=== PATIENT | female | born 1935 | race Hispanic/Latino ===

== ENCOUNTER 2019-01-15 21:37 | Inpatient (IN) | payer MEDICARE, OTHER ==
[~2019-01-15] VITALS: Ht 142.2 cm; Wt 75.4 kg
[~2019-01-15 21:37] MED LIST: TRAMADOL HCL-A1 EAC1; Z.0.ASPIRIN CHEW81 M PO; Z.0.CALCIUM600 MG; Z.0.CYCLOBENZAPRINE1; Z.0.K DUR10 MEQ; Z.0.LASIX20 MG; Z.0.LEVOTHROID50 MCG; Z.0.LOPRESSOR25 MG; Z.0.PROTONIX40 MG; Z.0.TOPROL XL25 MG PO; [UNRECOGNIZED DRUG - OTHER]; vicodin
--- OUTSIDE RECORDS SUMMARY | 2019-01-15 21:41 | XMS REPORT ---
[facility] Address Unknown Phone Unavailable Care Team Providers Care Twister Operator Name Role Phone Unavailable Unavailable Payers Payer Name Policy Type Policy Number Effective Date Expiration Date Problems This patient has no known problems. Allergies, Adverse Reactions, Alerts Allergy Name Allergy Type Status Severity Reaction(s) Onset Date Inactive Date Treating Clinician Comments No Known Drug Intolerances DA Active U 2011-10-25 00:00:00 Medications This patient has no known medications. Results Test Description Test Time Test Comments Text Results Atomic Results Result Comments - MRI C-SPINE W/O CONT 2018-10-27 17:55:00 [place]: B St: REG Name: LUCIA CARRILLO BENOIT [facility] : 1935 Age/S: 83/F [address] [facility] Unit #: [id number] Loc: [place] [address] Phys: Julissa Garcia MD Acct: [id number] Dis Date: Status: REG CLI PHONE #: [phone] Exam Date: 10/27/2018 1733 FAX #: [phone] Reason: M48.02 EXAMS: CPT CODE: [id number] MRI C-SPINE W/O CONT 23988 REASON FOR EXAM: M48.02 Exam Order Date: 10/27/2018 4:39 PM Attending MMira: Julissa Romano MD Comparison: Procedure: - MRI C-SPINE W/O CONT FINDINGS: Sagittal and axial images of the cervical spine were obtained in in T1, T2, and proton density with fat saturation. No IV gadolinium was given. The sagittal images show within normal alignment of the cervical spine. No evidence of diskitis or osteomyelitis. No evidence of acute or chronic compression fracture. Minimal deformity of the superior endplates of C6 and C7 consistent with sequela of degenerative changes and disc disease. The axial images show no evidence of cord compression. No evidence of narrowing of the neuroforamen. The cord is unremarkable without evidence of intramedullary mass. IMPRESSION: C5- 6 and C6-7: Minimal broad-based disc bulge with minimal central canal stenosis. No evidence of narrowing of the neural foramen at 2610 Reported and signed by: Toro Glaser M.D. CC: Technologist: AYALA GRIFFITHSRT - MRI Trnward Date/Time/By: 10/27/2018 (0168) : By: DarlynVTL Orig Print D/T: S: 10/27/2018 (2797) PAGE 1 Signed Report SCR MAMM BILATERAL LAURIE CAD DIGITAL 2018-07-18 12:42:27 - SCR MAMM BILATERAL LAURIE CAD DIGITALBILATERAL DIGITAL SCREENING MAMMOGRAM 3D/2D WITH CAD: 07/18/2018CLINICAL: Asymptomatic. Digital breast tomosynthesis was performed in addition to routine CC and MLO views. Current mammographic images were evaluated by either a [employer] M-Vu or a [employer] Identityware ImageChecker CAD (computer aided detection system). Comparison is made to exams dated 04/18/2017 mammogram, mammogram, and 03/17/2015 mammogram - [facility]-. There are scattered fibroglandular tissues in both breasts. No suspicious mass, architectural distortion, malignant type calcification, or lymph node abnormality detected. Breast architecture is stable compared to prior exams.IMPRESSION: NEGATIVEThere is no mammographic evidence of malignancy. Resume annual screening mammography in one year. Purvi Moe M.D. ar/penrad:07/18/2018 12:42:27 Kettle Worker: Valeria KAUFMAN, [facility]-FWletter sent: BIRADS 1-2 Normal Mammogram BI-RADS: 1 Negative
--- NOTE | 2019-01-15 22:25 | Diagnostic Imaging Report ---
EXAMINATION: Head CT without contrast. HISTORY:Headache, confusion and dizziness. COMPARISON:Report of CT brain from 03/03/2011, prior images are not available for comparison at the time of interpretation. TECHNIQUE: Multidetector axial images were obtained from the foramen magnum to the vertex without contrast. The images were reconstructed using brain and bone algorithms. Thin section brain images were reformatted into coronal and sagittal planes. Dose modulation, iterative reconstruction, and/or weight based adjustment of the mA/kV was utilized to reduce the radiation dose to as low as reasonably achievable. Intravenous contrast: None IMAGE QUALITY: Acceptable. FINDINGS: Skull/scalp: No lytic or blastic. lesions. No surgical changes. Parenchyma: Nonspecific bilateral frontoparietal patchy white matter hypodensity are likely related to small vessel ischemic changes. No acute hemorrhage, mass or acute major vascular territorial infarct. Arteries: No density suggestive of thrombosis. Dural sinuses: No abnormal density suggestive of thrombosis. Ventricles: Mild compensated dilatation due to volume loss. No hydrocephalus. Extra-axial spaces: No abnormal density. Brain volume: Generalized age-related cerebral volume loss. Craniocervical junction: No mass, Chiari malformation, or basilar invagination. Sella: No mass. Paranasal/mastoid sinuses: Imaged portions unremarkable. IMPRESSION: No acute intracranial abnormality. Generalized age-related cerebral volume loss. Mild supratentorial white matter microvascular ischemic changes. Signed by: Dr. Melani Terrell M.D. on 01/15/2019 10:22 PM
[2019-01-15] MEDS ORDERED: SODIUM CHLORIDE 0.9% 1000ML 1,000 ML IV SCH (22:35)
[2019-01-15 22:44] LABS: BILIRUBIN,URINE NEGATIVE (NEGATIVE); CLARITY,URINE SL CLOUDY (CLEAR); COLOR,URINE YELLOW (YELLOW); KETONES,URINE NEGATIVE (NEGATIVE); LEUKOCYTE ESTERASE ,URINE NEGATIVE (NEGATIVE); NITRITE,URINE NEGATIVE (NEGATIVE); PROTEIN,URINE DIPSTICK NEGATIVE (NEGATIVE); URINE UROBILINOGEN 0.2 mg/dL (0.2 - 1)
[2019-01-15] MEDS ORDERED: LEVOTHYROXINE75 MCG PO (22:49)
[2019-01-15] MEDS ORDERED: PRAVASTATIN SOD40 MG PO (22:49)
[2019-01-15] MEDS ORDERED: MYRBETRIQ50 MG PO (22:50)
[2019-01-15] MEDS ORDERED: OMEPRAZOLE40 MG PO (22:50)
[2019-01-15 22:58] LABS: BACTERIA,URINE MODERATE /HPF; EPITHELIAL CELLS,URINE FEW /LPF; MUCUS,URINE MANY (RARE)
[2019-01-15 23:12] LABS: BASOPHILS % 0.2 % (0.0-1.0); EOSINOPHILS % 0.4 % (0.0-6.0); HEMATOCRIT 37.6 % (34.2-44.1); HEMOGLOBIN 12.3 g/dL (12.0-16.0); LYMPHOCYTES % 10.7 % (18.0-39.1); MEAN CORPUSCULAR HEMOGLOBIN 31.2 pg (28-32); MEAN CORPUSCULAR HGB CONC 32.7 g/dL (31-35); MEAN CORPUSCULAR VOLUME 95.4 fL (81-99); MONOCYTES # (AUTO) 0.5 (0.2-0.8); MONOCYTES % 5.5 % (4.4-11.3); NEUTROPHILS # (AUTO) 7.7 (2.1-6.9); NEUTROPHILS % 82.8 % (38.7-80.0); PLATELET COUNT 199 x10e3/uL (140-360); RED BLOOD COUNT 3.94 x10e6/uL (3.6-5.1); RED CELL DISTRIBUTION WIDTH 12.8 % (11.7-14.4)
[2019-01-15] MEDS: CEFTRIAXONE SOD 1 GM/NS 50 ML 50 ML IV SCH (23:29)
[2019-01-15 23:31] LABS: ALANINE AMINOTRANSFERASE 16 IU/L (0-55); ALBUMIN 3.5 g/dL (3.5-5.0); ALBUMIN/GLOBULIN RATIO 1.2 (0.8-2.0); ALKALINE PHOSPHATASE 59 IU/L (40-150); ANION GAP 15.2 mmol/L (8-16); BLOOD UREA NITROGEN 19 mg/dL (7-26); BUN/CREATININE RATIO 22 (6-25); CALCIUM 9.5 mg/dL (8.4-10.2); CARBON DIOXIDE 22 mmol/L (22-29); CHLORIDE 105 mmol/L (98-107); CREATININE, SERUM 0.85 mg/dL (0.57-1.11); EST GLOMERULAR FILTRATION RATE > 60 ML/MIN (60-); GLUCOSE 138 mg/dL (74-118); POTASSIUM 4.2 mmol/L (3.5-5.1); SODIUM 138 mmol/L (136-145)
[2019-01-15 23:45] VITALS: BP 130/70
--- NOTE | 2019-01-15 23:45 | NUR ---
patient recieved to room 292 via stretcher from the emergency room. vss. no c/o pain noted. ivf infusing without difficulty. admit assessment/history obtained from patient without difficulty. daughter noted at the bedside. daughter to stay with mother all night. patient/daughter instructed to call for assistance when needed.
[2019-01-16] VITALS (7 sets, daily range): BP systolic 130–142; BP diastolic 61–76
--- NOTE | 2019-01-16 02:40 | NUR ---
patient appears to be resting quietly. no signs of pain/discomfort noted. daughter remains at the bedside.
[2019-01-16] MEDS: LEVOTHYROXINE SODIUM 75 MCG TAB PO SCH (08:30)
[2019-01-16] MEDS: CEFTRIAXONE SOD 1 GM/NS 50 ML 50 ML IV SCH ×2 (10:40→23:30)
[2019-01-16] MEDS: PANTOPRAZOLE SOD 40 MG TABEC PO SCH (10:40)
[2019-01-16] MEDS: ASPIRIN 81 MG CHEW TAB PO SCH (10:40)
[2019-01-16] MEDS: METOPROLOL SUCCINATE 25 MG TAB XL PO SCH ×2 (10:40→17:13)
--- NOTE | 2019-01-16 16:13 | History and Physical ---
PRIMARY CARE PHYSICIAN: Julissa Hall MD. CONSULTING PHYSICIAN: Merary Li MD. CHIEF COMPLAINT: Brief aphasia. HISTORY OF PRESENT ILLNESS: The patient is an 83-year-old female with hypertension, hypothyroidism, active urinary bladder, dyslipidemia, reflux, came in with a few hours of aphasia, now completely resolved. She does not have any symptoms. She is back to normal. No fever. Laboratory workup at the outpatient emergency room showed that the patient had trace blood in the urine with negative leukocyte esterase, but moderate bacteria, 6-10 wbc's. The patient was placed on Rocephin. She is stable. Vital sign, no fever. The patient denied of any chest pain or shortness of breath. Previously, the patient was seen by Dr. Swift. Had a complete workup including stress test. The patient was pending for a cardiac catheterization as an outpatient. She is now completely asymptomatic. Discussed with the patient, family and they are waiting for being seen by the neurologist at this time. The patient is stable. PAST MEDICAL HISTORY: Dyslipidemia, hypertension, overactive urinary bladder, hypothyroidism. PAST SURGICAL HISTORY: Left wrist surgery, bilateral hip repair, ventral hernia repair, cholecystectomy. SOCIAL HISTORY: The patient does not smoke or use alcohol. No regular drugs. ALLERGIES: NO KNOWN ALLERGIES. HOME MEDICATIONS: The patient is on baby aspirin once a day, levothyroxine, metoprolol succinate, Myrbetriq, omeprazole, and pravastatin. REVIEW OF SYSTEMS: Completely asymptomatic. No chest pain. No shortness of breath. No abdominal pain. PHYSICAL EXAMINATION: VITAL SIGNS: Temperature is 97, blood pressure 142/75, pulse rate 70, respirations 18. GENERAL: The patient is not in acute distress. HEENT: Normocephalic, atraumatic. Pupils reactive. Anicteric. NECK: Supple grossly. PULMONARY: Clear. CARDIOVASCULAR: Regular rate and rhythm. ABDOMEN: Soft, unremarkable. EXTREMITIES: No cyanosis or edema NEUROLOGIC: No gross focal deficit. LABORATORY DATA: Sodium is 138, potassium 4.2, chloride 105, bicarb 22, BUN 19, creatinine 0.8, glucose 138. WBC is 9.3, hemoglobin 12.3, hematocrit 37.6, and platelets are 199. Liver enzyme unremarkable. CT of the brain showed no acute intracranial abnormality. Generalized age-related cerebral volume loss. IMPRESSION: 1. Episode of confusion completely resolved. No focal deficit. The patient have urinary tract infection. She may have a transient ischemic attack. 2. Multiple baseline problem. The patient is pending to see Dr. Swift where she will need to have a schedule for a cardiac catheterization. I gave the patient option to see Dr. Swift. She says she will make an appointment to see him. PLAN: In the meantime, continue with home medication. Aspirin. We will have the patient see Dr. Merary Li, neurologist today. Pending on Dr. Li's recommendation, the patient may or may not go home today. Discussed with the patient and son at bedside. I discussed with the patient's grandson at bedside and the patient's son on the phone. We will continue to monitor the patient closely in the hospital. MD RANDALL Pruitt/MARTHA /[id number]
--- NOTE | 2019-01-16 20:25 | NUR ---
Completed BS rounds with Charge nurse. Pt alert and oriented to name. Walking to bed from bathroom took a shower, gait steady. Denies pain at this time. Call chun within reach. Will continue to monitor.
[2019-01-16] MEDS ORDERED: PRAVASTATIN 20 MG TAB PO SCH (21:00)
[2019-01-17] VITALS: BP 144/85
[2019-01-17 04:00] VITALS: BP 131/70
[2019-01-17] MEDS: LEVOTHYROXINE SODIUM 75 MCG TAB PO SCH (05:53)
--- NOTE | 2019-01-17 06:55 | NUR ---
Completed BS rounds with morning nurse. Pt lying in bed. Denies pain at this time. No acute distress noted. Family at bedside. Call chun within reach.
[2019-01-17] MEDS: PANTOPRAZOLE SOD 40 MG TABEC PO SCH (07:43)
[2019-01-17] MEDS: ASPIRIN 81 MG CHEW TAB PO SCH (07:43)
[2019-01-17] MEDS: METOPROLOL SUCCINATE 25 MG TAB XL PO SCH (07:43)
--- NOTE | 2019-01-17 07:44 | NUR ---
The pt's family is at the bedside and has questions about the dr's arrival and was reassured that the dr will round today but I am unsure as to the time. The pt. was medicated for bp 154/94.
[2019-01-17 07:53] VITALS: BP 154/94
[2019-01-17] MEDS: CEFTRIAXONE SOD 1 GM/NS 50 ML 50 ML IV SCH (11:56)
[2019-01-17 12:51] VITALS: BP 167/87
--- NOTE | 2019-01-17 15:10 | NUR ---
The pt. has been cleared for discharge and the iv removed. The pt. was given her prescription and discharge information and was escorted to private car for transport home.
--- NOTE | 2019-01-17 20:49 | Consultation ---
DATE OF CONSULTATION: 01/17/2019 Neurology Consult Note HISTORY OF PRESENT ILLNESS: Ms. Carrion is an 83-year-old right-hand dominant woman with past medical history significant for hypertension and hyperlipidemia, admitted to [facility] on the evening of January 15, 2019, with confusion. On the day of admission, the patient was awakened from sleep by her sister. Ms. Carrion was immediately noted to be confused. More specifically, Ms. Carrion did not recognize her sister. The patient did not recall recent events or plans for the day. It is unknown whether or not the patient was disoriented to her surroundings or time. Subsequently though the patient did recognize her [id number], I continued not to recognize her sister. Neither the patient nor her family members report a visual field cut or other disturbance, dysarthria, aphasia, facial droop, weakness, numbness, poor balance with impairment of gait, or dizziness associated with the above symptoms. Ms. Carrion does report possible dehydration on the day of admission. The patient reports she was not eating or drinking as she does normally. The patient endorses abdominal pain, nausea with vomiting, urinary urgency, and decreased urine output on the day of admission as well. According to family members at the bedside, Ms. Carrion symptoms persisted for approximately 1-1/2 hours. Once they resolved, Ms. Carrion was brought to the emergency center at [facility] for further evaluation of her symptoms. Upon arrival in the emergency center, the patient was afebrile with a blood pressure of 135/60 mmHg and a pulse of 70 beats per minute. Documentation of the patient's neurological examination is not available for review at present. A CT of the brain without contrast was performed while Ms. Carrion was in the emergency center. There was no evidence of recent large territorial ischemia or hemorrhage on this study. Ms. Carrion was subsequently admitted to [facility] as an inpatient for further evaluation and treatment of confusion. Ms. Carrion has not experienced similar symptoms previously. She does take aspirin 81 mg by mouth daily. REVIEW OF SYSTEMS: Confusion, abdominal pain, nausea, vomiting, urinary urgency, decreased urine output. Otherwise, a 12-point review of systems is negative. PAST MEDICAL HISTORY: Hypertension, hyperlipidemia, hypothyroidism, and gastroesophageal reflux disease. PAST SURGICAL HISTORY: Cholecystectomy, umbilical hernia repair, left wrist surgery, and bilateral hip surgeries. FAMILY MEDICAL HISTORY: Hypertension, hyperlipidemia, and diabetes mellitus. SOCIAL HISTORY: Ms. Carrion is a . She is retired. There is no reported current tobacco, alcohol, or recreational drug use. HOME MEDICATIONS: 1. Aspirin 81 mg by mouth daily. 2. Metoprolol 25 mg by mouth twice daily. 3. Pravastatin 40 mg by mouth at bedtime daily. 4. Levothyroxine 75 mcg by mouth daily. 5. Mirabegron 50 mg by mouth daily. 6. Omeprazole 40 mg by mouth daily. HOSPITAL MEDICATIONS: 1. Aspirin. 2. Ceftriaxone. 3. Levothyroxine. 4. Metoprolol. 5. Pravastatin. 6. Pantoprazole. ALLERGIES: NO KNOWN DRUG ALLERGIES. NO KNOWN FOOD ALLERGIES. NO KNOWN ALLERGIES TO LATEX. NO KNOWN ALLERGIES TO IODINE OR OTHER CONTRAST MATERIALS. PHYSICAL EXAMINATION: VITAL SIGNS: Height 56 inches, weight 166 pounds, BMI 37.2 kg/m2, blood pressure 159/94 mmHg, pulse 57 beats per minute. GENERAL: The patient is awake and alert, does not appear distressed. Morbidly obese. HEENT: Normocephalic, atraumatic. Pupils are equal, round, and reactive to light. Moist mucous membranes. NECK: Supple. No appreciable thyromegaly. No appreciable carotid bruits. CARDIOVASCULAR: S1, S2, regular rate and rhythm. No murmurs, rubs, or gallops. RESPIRATORY: Clear to auscultation bilaterally. No wheezes, rhonchi, or rales. EXTREMITIES: The skin is warm and dry. No clubbing, cyanosis, or edema. The posterior tibial and dorsalis pedis pulses are 1+ and symmetric. SKIN: No rashes or lesions. NEUROLOGIC: Memory/Attention: The patient is awake and alert, oriented to person, place (hospital, city, county, state), time (day of the week, month, year), and situation. Cranial Nerves: Cranial nerve 1 - not tested. Cranial nerve 2, 3, 4, and 6 - the pupils are equal and round, reactive briskly to light (4 mm to 2 mm). Extraocular movements intact. No nystagmus. Cranial nerve 5 - sensation is intact to light touch in the bilateral V1 through V3 distributions. Strength in the temporalis and masseter muscle was within normal limits. Cranial nerve 7 - the face is symmetric as are all facial movements. Strength is within normal limits. Cranial nerve 8 - hearing is intact to finger rub bilaterally. Cranial nerve 9, 10 - the soft palate elevates equally and symmetrically. Cranial nerve 11 - normal strength of the bilateral sternocleidomastoid and trapezius muscles. Cranial nerve 12 - the tongue protrudes midline and moves symmetrically from [id number]. Strength: Bulk is normal. Strength is 5/5 in the bilateral deltoids, biceps, triceps, brachioradialis, wrist flexors and extensors, finger flexors and extensors, intrinsic hand muscles, hip flexors, knee flexors, knee extensors, ankle dorsiflexion and plantar flexion, and intrinsic foot muscles. Tone is normal. DTRs: Deep tendon reflexes are 1+ and symmetric at the triceps, biceps, brachioradialis, and patellas. Deep tendon reflexes are absent and symmetric at the Achilles. Plantar responses are flexor bilaterally. Sensation: Sensation is intact to light touch in both arms and both legs. Cerebellar: Ammlkd-pmkc-flhjof and heel-hicks movements are intact without dysmetria or other impairment. Gait: Deferred. Speech: Spontaneous speech is normal without appreciable dysarthria or aphasia. Repetition is intact. Involuntary movements: None. Pronator Drift: None. LABORATORY DATA: A comprehensive metabolic panel was significant only for elevated serum glucose of 138 and a total protein of 6.4. monocytes, 0.4% eosinophils, and 0.2% basophils. Urinalysis reveals slightly cloudy urine with trace blood, 6-10 red blood cells, 6-10 white blood cells, moderate bacteria, and many cells. DIAGNOSTIC STUDIES: Electrocardiogram on 01/15/2019: Normal sinus rhythm at 62 beats per minute. Right bundle-branch block. A CT of the brain without contrast 01/15/2019: On my review, there is no evidence of recent or remote large territorial ischemia, hemorrhage, mass, or mass effect. There is mild diffuse cerebral atrophy with compensatory dilatation of the ventricles, appropriate for the patient's age. Their findings compatible with mild chronic small vessel ischemic disease. Bilateral carotid artery ultrasound with Doppler 01/16/2019: There is no atherosclerosis in either carotid artery system. Flow is antegrade in the bilateral vertebral arteries. ASSESSMENT AND PLAN: Ms. Carrion is an 83-year-old right-hand dominant woman with vascular risk factors, admitted to [facility] on January 15, 2019, with transient confusion as described in history of present illness. At present, her neurological examination is nonfocal. The patient's laboratory data and other diagnostic studies have been reviewed and are documented above. In my opinion, it is unlikely the patient had a transient ischemic attack due to the duration of her symptoms as well as the presence of only one symptom, confusion. It is far more likely the patient's transient confusion was related to a metabolic encephalopathy, probably secondary to urinary tract infection. There are no further recommendations from the Neurology Service at this time. Please call again with any questions or concerns. TIME SPENT: 50 minutes. Merary Li MD CP/MARTHA /[id number] MTDD
--- NOTE | 2019-01-19 05:50 | Discharge Summary ---
FINAL DISCHARGE DIAGNOSES: 1. Transient ischemic attack. 2. Metabolic encephalopathy, probably secondary to urinary tract infection. 3. History of coronary artery disease-per Dr. Dent's note, he gave the patient an option to see Dr. Swift here in the hospital, but the patient refused, instead wants to see Dr. Swift as an outpatient for further management and care. CONSULTANTS: Neurology. PHYSICAL EXAMINATION: VITAL SIGNS: Temperature is 97.2, pulse 62, respiratory rate is 20, blood pressure 154/94, pulse ox 99% on room air. LAB FINDINGS: Show white count 9.3, hemoglobin 12, hematocrit 37, platelets of 199. Chemistry; sodium 138, potassium 4.2, chloride 105, bicarb 22, anion gap of 15, BUN 19, creatinine 0.85, glucose 138, calcium is 9.5, total bilirubin was 0.3, AST 9, ALT 16, alkaline phosphatase 59, albumin 3.5. UA consistent with UTI. MICROBIOLOGY: None. IMAGING STUDIES: Carotid Doppler study shows to have a normal study with very mild stenosis in the bilateral internal carotids, but no evidence of any obstruction or any stenosis seen. CT of the brain found to be negative. HOSPITAL COURSE: An 83-year-old female, came into the emergency room with TIA-like symptoms, was admitted under observation and Neurology was consulted. The patient was found to have urinary tract infection, was treated accordingly with IV antibiotics and discharged on oral antibiotics. While here, neurology was consulted. Carotid Doppler was found to be normal. CT brain was found to be negative. No further workup was needed by Neurology. Per her note, it was felt the patient likely had an underlying TIA, it could be exacerbated from her urinary tract infection. No further neurological workup was needed. The patient was discharged on oral aspirin and statin. Per Dr. Dent's H and P, he offered the patient to have Cardiology come and evaluate her as she needed a left heart catheterization that was supposed to be scheduled at a later date, but the patient has not shown up to that appointment. According to his note, the patient refused and suggested that she will follow up as an outpatient and make an appointment to follow as an outpatient to see him. The patient did not have any chest pain or any symptoms of cardiac issues according to the note while here in the hospital, or even on admission. On discharge, the patient was doing well, back to normal baseline. The patient was cleared for discharge by Neurology. The patient was discharged on oral antibiotics as well. On the day of discharge, vital signs were stable, labs reviewed and stable. The patient seen and evaluated, examined thoroughly on the day of discharge. No other complaints. The patient verbalized understanding and agrees to plan of care to follow up appointment as an outpatient with the primary care physician in 1 week and urologist in 2 weeks' time. In relation to her underlying confusion, it all resolved after treatment of IV antibiotics for urinary tract infection. No further workup was needed. MEDICATIONS: See med reconciliation form. DISPOSITION: Home. CONDITION: Stable. DIET: Heart healthy. In the event of any worsening symptoms, the patient was advised to come back to the ED for further evaluation. Discharge summary took greater than 35 minutes. MD BETTY Clemente/MODManjinder /[id number]
== END 2019-01-17 15:30 | disposition home or self-care (01) | DRG 689 ==
LOC: ER 21:37 → ERHOLD 22:39 → MED/SURG3 23:23
PROVIDERS: ADMIT Internal Medicine; ATTEND Internal Medicine
DX: N39.0 Urinary tract infection, site not specified (principal); G93.41 Metabolic encephalopathy; I25.10 Atherosclerotic heart disease of native coronary artery without angina pectoris; I65.23 Occlusion and stenosis of bilateral carotid arteries; I10 Essential (primary) hypertension; E78.5 Hyperlipidemia, unspecified; E03.9 Hypothyroidism, unspecified; Z79.52 Long term (current) use of systemic steroids; N32.81 Overactive bladder
CPT/HCPCS: 36415; 70450; 80053; 81001; 85025; 93005; 93880; 99284; J0696; J7030

== ENCOUNTER 2019-03-20 00:29 | Emergency (ER) | payer MEDICARE, OTHER ==
[~2019-03-20] VITALS: Ht 142.2 cm; Wt 78.0 kg
[~2019-03-20 00:29] MED LIST changes: +LEVOTHYROXINE75 MCG PO; +MYRBETRIQ50 MG PO; +OMEPRAZOLE40 MG PO; +PRAVASTATIN SOD40 MG PO
[2019-03-20] MEDS ORDERED: CLONIDINE HCL 0.1 MG TAB PO ONE (01:00)
[2019-03-20] MEDS ORDERED: ASPIRIN 81 MG CHEW TAB PO ONE (01:15)
[2019-03-20 02:07] LABS: BASOPHILS % 0.3 % (0.0-1.0); EOSINOPHILS % 0.1 % (0.0-6.0); HEMATOCRIT 38.5 % (34.2-44.1); HEMOGLOBIN 12.6 g/dL (12.0-16.0); LYMPHOCYTES # (AUTO) 0.9 (1.0-3.2); LYMPHOCYTES % 12.5 % (18.0-39.1); MEAN CORPUSCULAR HEMOGLOBIN 31.4 pg (28-32); MEAN CORPUSCULAR HGB CONC 32.7 g/dL (31-35); MONOCYTES # (AUTO) 0.4 (0.2-0.8); MONOCYTES % 5.2 % (4.4-11.3); NEUTROPHILS # (AUTO) 5.6 (2.1-6.9); NEUTROPHILS % 81.5 % (38.7-80.0); PLATELET COUNT 182 x10e3/uL (140-360); RED BLOOD COUNT 4.01 x10e6/uL (3.6-5.1); RED CELL DISTRIBUTION WIDTH 12.7 % (11.7-14.4)
[2019-03-20] MEDS ORDERED: HYDROCHLOROTHIA25 MG PO (02:12)
[2019-03-20 02:19] LABS: ALANINE AMINOTRANSFERASE 19 IU/L (0-55); ALBUMIN 3.7 g/dL (3.5-5.0); ALBUMIN/GLOBULIN RATIO 1.2 (0.8-2.0); ALKALINE PHOSPHATASE 69 IU/L (40-150); ANION GAP 12.9 mmol/L (8-16); BLOOD UREA NITROGEN 20 mg/dL (7-26); BUN/CREATININE RATIO 28 (6-25); CALCIUM 9.8 mg/dL (8.4-10.2); CARBON DIOXIDE 26 mmol/L (22-29); CHLORIDE 104 mmol/L (98-107); CREATINE KINASE 57 IU/L (29-168); CREATININE, SERUM 0.72 mg/dL (0.57-1.11); EST GLOMERULAR FILTRATION RATE > 60 ML/MIN (60-); GLUCOSE 130 mg/dL (74-118); POTASSIUM 4.9 mmol/L (3.5-5.1); SODIUM 138 mmol/L (136-145)
--- NOTE | 2019-03-20 02:46 | NUR ---
report given to jannie denney
--- NOTE | 2019-03-20 04:41 | Diagnostic Imaging Report ---
EXAMINATION: CHEST SINGLE (PORTABLE) INDICATION: Chest pain COMPARISON: None FINDINGS: AP view TUBES and LINES: None. LUNGS: Lungs are well inflated. Lungs are clear. There is no evidence of pneumonia or pulmonary edema. Prominent central pulmonary vasculature. PLEURA: No pleural effusion or pneumothorax. HEART AND MEDIASTINUM: The cardiomediastinal silhouette is mildly enlarged. Thoracic aorta calcifications tortuous thoracic aorta. BONES AND SOFT TISSUES: No acute osseous lesion. Soft tissues are unremarkable. Healed fracture of posterior aspect of left rib 6. Degenerative changes in the spine and shoulders with evidence to suggest chronic bilateral rotator cuff tears. UPPER ABDOMEN: No free air under the diaphragm. IMPRESSION: Pulmonary vascular congestion. Tortuous aorta can be seen with hypertension. Signed by: Christopher Dent DO on 03/20/2019 4:38 AM
[2019-03-20 06:27] VITALS: BP 144/73
== END 2019-03-20 04:50 | disposition home or self-care (01) ==
LOC: ER 00:29
DX: R07.89 Other chest pain (principal); I10 Essential (primary) hypertension; I45.10 Unspecified right bundle-branch block; Z79.82 Long term (current) use of aspirin
CPT/HCPCS: 36415; 71045; 80053; 82550; 82553; 84484; 85025; 93005; 99284

== ENCOUNTER 2022-01-09 09:39 | Outpatient (RCR) | payer OTHER ==
[~2022-01-09 09:39] MED LIST changes: +HYDROCHLOROTHIA25 MG PO
[2022-01-14] MEDS ORDERED: IBUPROFEN200 MG PO (14:32)
[2022-01-15] MEDS ORDERED: LUMIGAN2.5 M1 OP (10:49)
[2022-01-15] MEDS ORDERED: CEPHALEXIN500 MG PO (10:49)
[2022-01-15] MEDS ORDERED: ACETAMIN-CODE12.5 ML PO (10:49)
== END 2022-01-17 ==
LOC: PT 09:39
PROVIDERS: ATTEND Specialist
DX: M17.0 Bilateral primary osteoarthritis of knee (principal); M12.811 Other specific arthropathies, not elsewhere classified, right shoulder

== ENCOUNTER → 2022-01-15 | Day surgery (SDC) | payer OTHER ==
[~2022-01-15] MED LIST changes: +ACETAMIN-CODE12.5 ML PO; +BETAMETHASONE DISODIUM PHOS 6 MG/ML VIAL ONE; +BUPIVACAINE HCL 0.25% 10ML MPF VIAL INJ ONE; +CEPHALEXIN500 MG PO; +IBUPROFEN200 MG PO; +LIDOCAINE HCL 1% LOCAL INJ 20 ML VIAL ONE; +LUMIGAN2.5 M1 OP; +MUPIROCIN 2% OINT 22 GM TUBE ONE; +ONDANSETRON HCL INJ 2MG/ML 2ML 2 MG/ML VIAL ONE; +POVIDONE IODINE 0.05% 0.05 % ML PO ONE; +PROPOFOL IV EMULSION 10 MG/ML 20 ML VIAL ONE; +SEVOFLURANE INHAL SOLN 250 ML PEN BTL ONE; +Vancomycin IV 1 GM VIAL ONE
[2022-01-15 09:10] LABS: BASOPHILS % 0.2 % (0.0-1.0); EOSINOPHILS # (AUTO) 0.1 (0.0-0.4); EOSINOPHILS % 0.7 % (0.0-6.0); HEMATOCRIT 32.8 % (34.2-44.1); HEMOGLOBIN 10.1 g/dL (12.0-16.0); LYMPHOCYTES # (AUTO) 0.7 (1.0-3.2); MEAN CORPUSCULAR HEMOGLOBIN 28.3 pg (28-32); MEAN CORPUSCULAR HGB CONC 30.8 g/dL (31-35); MEAN CORPUSCULAR VOLUME 91.9 fL (81-99); MONOCYTES % 8.4 % (4.4-11.3); NEUTROPHILS # (AUTO) 10.1 (2.1-6.9); NEUTROPHILS % 83.4 % (38.7-80.0); PLATELET COUNT 228 x10e3/uL (140-360); RED BLOOD COUNT 3.57 x10e6/uL (3.6-5.1); RED CELL DISTRIBUTION WIDTH 15.9 % (11.7-14.4)
[2022-01-15 09:42] LABS: ANION GAP 15.7 mmol/L (8-16); CALCIUM 8.4 mg/dL (8.4-10.2); CREATININE, SERUM 0.65 mg/dL (0.57-1.11); POTASSIUM 3.7 mmol/L (3.5-5.1)
[2022-01-15 13:52] VITALS: BP 132/72
== END | disposition home or self-care (01) ==
LOC: OR 08:34
PROVIDERS: ATTEND Podiatrist Foot Surgery
DX: M79.5 Residual foreign body in soft tissue (principal); L02.611 Cutaneous abscess of right foot; I10 Essential (primary) hypertension; E78.5 Hyperlipidemia, unspecified; Z86.16 Personal history of COVID-19; K44.9 Diaphragmatic hernia without obstruction or gangrene; I45.10 Unspecified right bundle-branch block
CPT/HCPCS: 14040; 28022; 36415; 71046; 73620; 80048; 85025; 87071; 87075; 87205; 93005; J0690; J0720; J2001; J2405; J2704; J3370

== ENCOUNTER 2022-04-10 12:21 | Inpatient (IN) | payer MEDICARE, OTHER ==
[~2022-04-10] VITALS: Ht 142.2 cm; Wt 78.0 kg
[~2022-04-10 12:21] MED LIST changes: -BETAMETHASONE DISODIUM PHOS 6 MG/ML VIAL ONE; -BUPIVACAINE HCL 0.25% 10ML MPF VIAL INJ ONE; -LIDOCAINE HCL 1% LOCAL INJ 20 ML VIAL ONE; -MUPIROCIN 2% OINT 22 GM TUBE ONE; -ONDANSETRON HCL INJ 2MG/ML 2ML 2 MG/ML VIAL ONE; -POVIDONE IODINE 0.05% 0.05 % ML PO ONE; -PROPOFOL IV EMULSION 10 MG/ML 20 ML VIAL ONE; -SEVOFLURANE INHAL SOLN 250 ML PEN BTL ONE; -Vancomycin IV 1 GM VIAL ONE
[2022-04-10 12:41] LABS: BASOPHILS # (AUTO) 0.1 (0.0-0.1); BASOPHILS % 0.6 % (0.0-1.0); EOSINOPHILS # (AUTO) 0.1 (0.0-0.4); EOSINOPHILS % 0.9 % (0.0-6.0); HEMATOCRIT 39.1 % (34.2-44.1); HEMOGLOBIN 11.7 g/dL (12.0-16.0); LYMPHOCYTES # (AUTO) 1.6 (1.0-3.2); LYMPHOCYTES % 19.5 % (18.0-39.1); MEAN CORPUSCULAR HEMOGLOBIN 29.6 pg (28-32); MEAN CORPUSCULAR HGB CONC 29.9 g/dL (31-35); MONOCYTES # (AUTO) 0.6 (0.2-0.8); MONOCYTES % 7.5 % (4.4-11.3); NEUTROPHILS # (AUTO) 5.6 (2.1-6.9); NEUTROPHILS % 69.4 % (38.7-80.0); PLATELET COUNT 227 x10e3/uL (140-360); RED BLOOD COUNT 3.95 x10e6/uL (3.6-5.1); RED CELL DISTRIBUTION WIDTH 15.1 % (11.7-14.4)
[2022-04-10 12:55] LABS: INR 0.95; PARTIAL THROMBOPLASTIN TIME 27.9 seconds (23.8-35.5); PROTHROMBIN TIME 13.5 seconds (11.9-14.5)
[2022-04-10 13:03] LABS: ALBUMIN 3.7 g/dL (3.5-5.0); ALBUMIN/GLOBULIN RATIO 1.4 (0.8-2.0); ANION GAP 13.8 mmol/L (8-16); CALCIUM 8.8 mg/dL (8.4-10.2); CREATININE, SERUM 0.77 mg/dL (0.57-1.11); POTASSIUM 3.8 mmol/L (3.5-5.1)
[2022-04-10 13:10] LABS: CREATINE KINASE MB 1.1 ng/mL (0-5.0)
[2022-04-10 17:11] LABS: CREATINE KINASE MB 1.1 ng/mL (0-5.0)
[2022-04-10 17:40] VITALS: BP 178/69
[2022-04-10 17:45] VITALS: BP 178/69
[2022-04-10] MEDS ORDERED: CLONIDINE HCL 0.1 MG TAB PO PRN (17:45)
[2022-04-10] MEDS ORDERED: IRON PO (18:04)
[2022-04-10] MEDS ORDERED: VITAMIN D3 PO (18:04)
[2022-04-10 18:06] VITALS: BP 178/69
[2022-04-10 20:00] VITALS: BP 97/42
[2022-04-11] VITALS (39 sets, daily range): BP systolic 103–172; BP diastolic 45–91
[2022-04-11] MEDS ORDERED: SODIUM CHLORIDE 0.9% 1000ML 1,000 ML ONE ×2 (08:43→08:52)
[2022-04-11] MEDS ORDERED: HEPARIN SOD (PORCINE) 1000 UNIT/ML 30ML ONE (08:51)
[2022-04-11] MEDS ORDERED: HEPARIN SOD/SOD CHLORIDE 2,000 ML ONE (08:51)
[2022-04-11] MEDS ORDERED: IOPAMIDOL 370 MG/ML 100 ML INFUS..BTL INJ ONE ×3 (08:51→10:11)
[2022-04-11] MEDS ORDERED: NITROGLYCERIN/D5W 200 MCG/ML 250 ML ONE (08:52)
[2022-04-11] MEDS: SODIUM CHLORIDE 0.9% 1000ML 1,000 ML IV SCH ×3 (09:00→22:06)
[2022-04-11] MEDS: ASPIRIN 81 MG ENTERIC COATED PO SCH (09:00)
[2022-04-11] MEDS ORDERED: LIDOCAINE HCL 2% LOCAL INJ 5 ML SDV VIAL INJ ONE (09:10)
[2022-04-11] MEDS ORDERED: CLOPIDOGREL BISULFATE 75 MG TAB PO ONE (09:15)
[2022-04-11] MEDS ORDERED: FENTANYL CITRATE/PF 100MCG/2 ML INJ ONE (09:19)
[2022-04-11] MEDS ORDERED: MIDAZOLAM HCL 2 MG/2 ML VIAL ONE (09:19)
[2022-04-11 09:34] LABS: THYROID STIMULATING HORMONE 2.046 uIU/mL (0.350-4.940)
[2022-04-11] MEDS ORDERED: BIVALRIUDIN 250 MG/VIAL VIAL IV ONE (10:05)
[2022-04-11] MEDS ORDERED: ATORVASTATIN 40 MG TAB PO SCH (21:00)
[2022-04-12 00:27] VITALS: BP 126/55
[2022-04-12 04:00] VITALS: BP 128/71
[2022-04-12 04:58] LABS: BASOPHILS % 0.3 % (0.0-1.0); EOSINOPHILS # (AUTO) 0.1 (0.0-0.4); EOSINOPHILS % 0.8 % (0.0-6.0); HEMATOCRIT 34.5 % (34.2-44.1); HEMOGLOBIN 11.1 g/dL (12.0-16.0); LYMPHOCYTES % 13.6 % (18.0-39.1); MEAN CORPUSCULAR HEMOGLOBIN 30.1 pg (28-32); MEAN CORPUSCULAR HGB CONC 32.2 g/dL (31-35); MEAN CORPUSCULAR VOLUME 93.5 fL (81-99); MONOCYTES # (AUTO) 0.6 (0.2-0.8); MONOCYTES % 7.8 % (4.4-11.3); NEUTROPHILS # (AUTO) 5.6 (2.1-6.9); NEUTROPHILS % 76.1 % (38.7-80.0); PLATELET COUNT 230 x10e3/uL (140-360); RED BLOOD COUNT 3.69 x10e6/uL (3.6-5.1); RED CELL DISTRIBUTION WIDTH 15.7 % (11.7-14.4)
[2022-04-12 05:05] LABS: ANION GAP 13.9 mmol/L (8-16); CALCIUM 8.2 mg/dL (8.4-10.2); CREATININE, SERUM 0.66 mg/dL (0.57-1.11); POTASSIUM 3.9 mmol/L (3.5-5.1)
[2022-04-12 05:52] VITALS: BP 128/71
[2022-04-12] MEDS ORDERED: LEVOTHYROXINE SODIUM 75 MCG TAB PO SCH (06:00)
[2022-04-12 08:00] VITALS: BP 128/71
[2022-04-12 08:48] VITALS: BP 124/62
[2022-04-12] MEDS ORDERED: CLOPIDOGREL BISULFATE 75 MG TAB PO SCH (09:00)
[2022-04-12] MEDS: ASPIRIN 81 MG ENTERIC COATED PO SCH (10:07)
[2022-04-12] MEDS: SODIUM CHLORIDE 0.9% 1000ML 1,000 ML IV SCH (10:09)
[2022-04-12 14:00] VITALS: BP 129/82
[2022-04-12] MEDS ORDERED: PLAVIX75 MG PO (14:31)
[2022-04-12] MEDS ORDERED: LISINOPRIL2.5 MG PO (14:33)
[2022-04-12] MEDS ORDERED: LIPITOR20 MG PO (14:33)
== END 2022-04-12 15:30 | disposition home or self-care (01) | DRG 247 ==
LOC: ER 12:30 → ERHOLD 15:59 → MED/SURG 17:24 → OBSVTOIN 04-12 12:53
PROVIDERS: ADMIT Internal Medicine; ATTEND Internal Medicine
PROC: 027034Z Dilation of Coronary Artery, One Artery with Drug-eluting Intraluminal Device, Percutaneous Approach (ICD-10-PCS; principal; 2022-04-11)
PROC: 4A023N7 Measurement of Cardiac Sampling and Pressure, Left Heart, Percutaneous Approach (ICD-10-PCS; 2022-04-11)
PROC: B2111ZZ Fluoroscopy of Multiple Coronary Arteries using Low Osmolar Contrast (ICD-10-PCS; 2022-04-11)
PROC: B2151ZZ Fluoroscopy of Left Heart using Low Osmolar Contrast (ICD-10-PCS; 2022-04-11)
DX: I25.110 Atherosclerotic heart disease of native coronary artery with unstable angina pectoris (principal); I10 Essential (primary) hypertension; E78.5 Hyperlipidemia, unspecified; K21.9 Gastro-esophageal reflux disease without esophagitis; I34.1 Nonrheumatic mitral (valve) prolapse; E03.9 Hypothyroidism, unspecified; E66.01 Morbid (severe) obesity due to excess calories; Z68.38 Body mass index [BMI] 38.0-38.9, adult; Z90.49 Acquired absence of other specified parts of digestive tract; Z96.643 Presence of artificial hip joint, bilateral; Z87.440 Personal history of urinary (tract) infections; Z80.1 Family history of malignant neoplasm of trachea, bronchus and lung; Z80.0 Family history of malignant neoplasm of digestive organs; Z20.822 Contact with and (suspected) exposure to COVID-19
CPT/HCPCS: 36415; 71045; 80048; 80053; 80061; 82550; 82553; 84443; 84484; 85025; 85610; 85730; 92928; 93005; 93458; 99152; 99153; 99284; C1766; C1876; C1887; G0378; J0583; J1644; J2001; J2250; J3010; J7030; Q9967

== ENCOUNTER 2022-04-14 10:45 | Emergency (ER) | payer MEDICARE, OTHER ==
[~2022-04-14] VITALS: Ht 142.2 cm; Wt 78.0 kg
[~2022-04-14 10:45] MED LIST changes: +IRON PO; +LIPITOR20 MG PO; +LISINOPRIL2.5 MG PO; +PLAVIX75 MG PO; +VITAMIN D3 PO
[2022-04-14] MEDS ORDERED: CEPHALEXIN500 MG PO (12:02)
[2022-04-14] MEDS ORDERED: BACTRIM DS TAB1 EACH PO (12:02)
== END 2022-04-14 12:12 | disposition home or self-care (01) ==
LOC: ER 11:30
DX: M79.671 Pain in right foot (principal); L03.115 Cellulitis of right lower limb; I10 Essential (primary) hypertension; E03.9 Hypothyroidism, unspecified; E78.5 Hyperlipidemia, unspecified; K21.9 Gastro-esophageal reflux disease without esophagitis
CPT/HCPCS: 99282

== ENCOUNTER 2022-05-14 18:28 | Observation (INO) | payer OTHER ==
[~2022-05-14] VITALS: Ht 142.2 cm; Wt 79.1 kg
[~2022-05-14 18:28] MED LIST changes: +BACTRIM DS TAB1 EACH PO
[2022-05-14] MEDS ORDERED: ONDANSETRON HCL INJ 2MG/ML 2ML 2 MG/ML VIAL IV PRN (20:00)
[2022-05-14] MEDS ORDERED: SODIUM CHLORIDE FLUSH 10 ML SYR INJ PRN (20:00)
[2022-05-14 20:17] LABS: BASOPHILS % 0.6 % (0.0-1.0); EOSINOPHILS # (AUTO) 0.1 (0.0-0.4); EOSINOPHILS % 1.4 % (0.0-6.0); HEMATOCRIT 31.5 % (34.2-44.1); HEMOGLOBIN 9.4 g/dL (12.0-16.0); LYMPHOCYTES # (AUTO) 0.9 (1.0-3.2); LYMPHOCYTES % 13.8 % (18.0-39.1); MEAN CORPUSCULAR HEMOGLOBIN 30.7 pg (28-32); MEAN CORPUSCULAR HGB CONC 29.8 g/dL (31-35); MEAN CORPUSCULAR VOLUME 102.9 fL (81-99); MONOCYTES # (AUTO) 0.7 (0.2-0.8); MONOCYTES % 10.9 % (4.4-11.3); NEUTROPHILS # (AUTO) 4.8 (2.1-6.9); NEUTROPHILS % 72.7 % (38.7-80.0); PLATELET COUNT 213 x10e3/uL (140-360); RED BLOOD COUNT 3.06 x10e6/uL (3.6-5.1); RED CELL DISTRIBUTION WIDTH 14.7 % (11.7-14.4)
[2022-05-14 20:40] LABS: ALANINE AMINOTRANSFERASE 9 IU/L (0-55); ALBUMIN 2.9 g/dL (3.5-5.0); ALKALINE PHOSPHATASE 37 IU/L (40-150); ANION GAP 13.9 mmol/L (8-16); BLOOD UREA NITROGEN 15 mg/dL (7-26); BUN/CREATININE RATIO 19 (6-25); CALCIUM 8.9 mg/dL (8.4-10.2); CARBON DIOXIDE 24 mmol/L (22-29); CHLORIDE 108 mmol/L (98-107); GLUCOSE 114 mg/dL (74-118); POTASSIUM 3.9 mmol/L (3.5-5.1); SODIUM 142 mmol/L (136-145)
[2022-05-14] MEDS: Vancomycin IV 1 GM in SODIUM CHLORIDE 0.9% 250ML 250 ML IV SCH (21:00)
[2022-05-14 21:45] VITALS: BP 141/73
[2022-05-15] VITALS: BP 114/53
[2022-05-15 04:00] VITALS: BP 117/57
[2022-05-15 05:31] LABS: BASOPHILS % 0.6 % (0.0-1.0); EOSINOPHILS # (AUTO) 0.1 (0.0-0.4); EOSINOPHILS % 1.5 % (0.0-6.0); HEMATOCRIT 26.6 % (34.2-44.1); HEMOGLOBIN 8.7 g/dL (12.0-16.0); LYMPHOCYTES % 19.1 % (18.0-39.1); MEAN CORPUSCULAR HGB CONC 32.7 g/dL (31-35); MONOCYTES # (AUTO) 0.5 (0.2-0.8); MONOCYTES % 10.3 % (4.4-11.3); NEUTROPHILS # (AUTO) 3.6 (2.1-6.9); NEUTROPHILS % 67.7 % (38.7-80.0); PLATELET COUNT 198 x10e3/uL (140-360); RED BLOOD COUNT 2.81 x10e6/uL (3.6-5.1); RED CELL DISTRIBUTION WIDTH 14.6 % (11.7-14.4)
[2022-05-15 05:46] LABS: MEAN CORPUSCULAR VOLUME 94.7 fL (81-99)
[2022-05-15 07:39] VITALS: BP 117/60
[2022-05-15] MEDS: Vancomycin IV 1 GM in SODIUM CHLORIDE 0.9% 250ML 250 ML IV SCH (08:44)
== END 2022-05-15 10:57 | disposition home or self-care (01) ==
LOC: ER 18:34 → ERHOLD 19:49 → INTOOBSV 19:49 → MED/SURG2 21:11
PROVIDERS: ADMIT Internal Medicine; ATTEND Internal Medicine
DX: S80.11XA Contusion of right lower leg, initial encounter (principal); D62 Acute posthemorrhagic anemia; L03.115 Cellulitis of right lower limb; Z79.02 Long term (current) use of antithrombotics/antiplatelets; I25.10 Atherosclerotic heart disease of native coronary artery without angina pectoris; I10 Essential (primary) hypertension; E03.9 Hypothyroidism, unspecified; W01.198A Fall on same level from slipping, tripping and stumbling with subsequent striking against other object, initial encounter; Z20.822 Contact with and (suspected) exposure to COVID-19; Z79.899 Other long term (current) drug therapy; Z87.440 Personal history of urinary (tract) infections; Z96.643 Presence of artificial hip joint, bilateral; Z95.5 Presence of coronary angioplasty implant and graft
CPT/HCPCS: 0223U; 36415; 80053; 83605; 85025; 87040; 93971; 99251; 99284; G0378; J0692; J3370; J7050

== ENCOUNTER 2022-07-19 06:45 | Emergency (ER) | payer MEDICARE, OTHER ==
[~2022-07-19] VITALS: Ht 142.2 cm; Wt 78.9 kg
[2022-07-19] MEDS ORDERED: HYDROCODONE/APAP 5MG-325MG TAB PO ONE (07:00)
[2022-07-19] MEDS ORDERED: FENTANYL CITRATE/PF 100MCG/2 ML INJ IV PRN (09:30)
[2022-07-19] MEDS ORDERED: HYDROCODON-ACE1 EA11 PO (09:58)
== END 2022-07-19 12:21 | disposition home or self-care (01) ==
LOC: ER 06:54
DX: M25.511 Pain in right shoulder (principal); S43.084A Other dislocation of right shoulder joint, initial encounter; X50.1XXA Overexertion from prolonged static or awkward postures, initial encounter; Y92.89 Other specified places as the place of occurrence of the external cause; I10 Essential (primary) hypertension; E78.5 Hyperlipidemia, unspecified; E03.9 Hypothyroidism, unspecified; K21.9 Gastro-esophageal reflux disease without esophagitis; I34.1 Nonrheumatic mitral (valve) prolapse
CPT/HCPCS: 99284; J3010

== ENCOUNTER → 2024-03-02 | Outpatient (REF) | payer OTHER ==
[~2024-03-02] MED LIST changes: +CALCIUM PO; +HYDROCODON-ACE1 EA11 PO; +MULTIPLE VITAM1 EAC2
== END ==
LOC: US 14:12
PROVIDERS: ATTEND Urology
DX: N39.0 Urinary tract infection, site not specified (principal)
CPT/HCPCS: 74018; 76770; 76857